=== PATIENT | female | born 1940 | race Caucasian/White ===

== ENCOUNTER 2018-12-16 12:11 | Outpatient (CLI) | payer BC, MEDICARE ==
[2014-10-29 06:30] VITALS: O2SAT 92
== END 2018-12-16 12:12 | disposition home or self-care (01) | DRG 554 ==
LOC: CONVCARE 12:11
PROVIDERS: ATTEND Orthopaedic Surgery
DX: M17.11 Unilateral primary osteoarthritis, right knee (principal)
CPT/HCPCS: 73562